=== PATIENT | female | born 2000 | race Two or more races ===

== ENCOUNTER 2025-02-06 11:23 | Emergency (ER) | payer OTHER ==
[~2025-02-06] VITALS: Ht 172.7 cm; Wt 74.8 kg
[2025-02-06] MEDS ORDERED: DIPHENHYDRAMINE HCL 50 MG/ML VIAL 1ML IV ONE (13:15)
[2025-02-06] MEDS ORDERED: FAMOtidine 10 MG/ML (4ML VIAL) IV ONE (13:30)
[2025-02-06] MEDS ORDERED: DEXAMETHASONE SODIUM PHOSP/PF 10 MG/ML VIAL IV ONE (13:30)
[2025-02-06] MEDS ORDERED: DEXAMETHASONE SODIUM PHOSPHATE 4 MG/ML VIAL ONE (13:34)
[2025-02-06] MEDS ORDERED: FAMOTIDINE/PF 20 MG/2 ML VIAL ONE (13:34)
[2025-02-06] MEDS ORDERED: DIPHENHYDRAMINE HCL 50 MG/ML VIAL 1ML ONE (13:34)
[2025-02-06] MEDS ORDERED: ATARAX10 MG PO (16:01)
[2025-02-06] MEDS ORDERED: ZYRTEC10 MG PO (16:01)
== END 2025-02-06 16:51 | disposition home or self-care (01) ==
LOC: ER 11:23
DX: T78.49XA Other allergy, initial encounter (principal); X58.XXXA Exposure to other specified factors, initial encounter